=== PATIENT | female | born 2000 | race Asian ===

== ENCOUNTER 2022-05-17 09:54 | Outpatient (CLI) | payer OTHER, SELFPAY ==
[2022-05-17 13:43] LABS: Chloride* 108 mmol/L (96-114)
[2022-05-17 13:44] LABS: Albumin* 4.3 g/dL (3.3-5.0); Potassium* 3.9 mmol/L (3.6-5.1); Sodium* 141 mmol/L (135-149)
[2022-05-17 13:46] LABS: Carbon Dioxide* 25 mmol/L (20-32); Creatinine* 0.5 mg/dL (0.5-1.5); Estimated Glomerular Filt Rate 136 ml/min
[2022-05-17 13:47] LABS: Alanine Aminotransferase* 15 U/L (4-35); Alkaline Phosphatase* 51 U/L (40-150); Aspartate Amino Transferase* 22 U/L (12-35); Bilirubin Total* 0.3 mg/dL (0.1-1.5); Blood Urea Nitrogen* 6 mg/dL (5-24); Calcium* 9.3 mg/dL (8.4-10.6); Glucose* 76 mg/dL (60-115); Total Protein* 6.9 g/dL (6.0-8.3)
[2022-05-17 15:45] LABS: Iron* 53 ug/dL (37-170)
[2022-05-17 15:55] LABS: Percent Iron Saturation 18 % (20-50); Total Iron Binding Capacity 293 ug/dL (265-497)
[2022-05-17 16:22] LABS: Ferritin* 18.4 ng/mL (6.24-137.0)
== END 2022-05-17 09:55 | disposition home or self-care (01) ==
PROVIDERS: Visit Provider Family Medicine
DX: R55 Syncope and collapse (principal)
CPT/HCPCS: 80053; 82728; 83540; 83550; 84443

== ENCOUNTER 2022-07-09 10:52 | Emergency (ER) | payer OTHER, SELFPAY ==
[2022-07-09 10:59] VITALS: BP 129/91; PULSE 114; RESP 20; TEMP 36.8; O2SAT 98
--- NOTE | 2022-07-09 11:27 | ED_ITS ---
HPI - General Adult General Chief complaint: Ear/Nose/Throat Problem Stated complaint: nose bleed Time Seen by Provider: 07/09/22 10:56 History of Present Illness HPI narrative: Patient is a 22-year-old female who has had a left-sided nosebleed for about the last hour. She has had them in the past, has no history of bleeding problems or other issues other than history of anemia and vasovagal syncope. She thinks it might have stopped at this point. She has not been swallowing blood. She is not lightheaded or dizzy. No trauma or injury Related Data Home Medications Medication Instructions Recorded Confirmed albuterol sulfate 90 mcg/actuation 2 puff inhalation Q4-6H PRN 03/13/22 03/13/22 aerosol inhaler beclomethasone dipropionate 80 mcg inhalation 03/13/22 03/13/22 mcg/actuation aerosol inhaler beclomethasone dipropionate 80 1 inh inhalation BID 05/17/22 05/17/22 mcg/actuation HFA breath activated aerosol (Qvar RediHaler) Allergies Allergy/AdvReac Type Severity Reaction Status Date / Time No Known Drug Allergies Allergy Verified 05/17/22 09:21 Review of Systems Status of ROS: Reports: 6 or more systems reviewed and unremarkable except as noted in History and below PFSH PFSH Medical History Anemia Syncope Vasovagal syncope Social History Smoking Status: Never smoker Exam Narrative: Exam Narrative: Objective: Patient's vital signs unremarkable she is alert orient x3 HEENT left nasal septal mucosa is friable no obvious bleeding noted Right nares is clear Mouth clear Procedure: Silver nitrate was applied after informed consent to the left nasal septum x2, no further bleeding noted good cauterization noted of the mucosal lining. Const: Vital Signs, click to edit/add: Vital Signs - 24 hr 07/09/22 10:59 Temperature 98.2 F Pulse Rate [Pulse Oximeter] 114 H Respiratory Rate 20 Blood Pressure [Ri ght Upper Arm] 129/91 H Pulse Oximetry 98 Oxygen Delivery Me thod Room Air Course Vital Signs Vital signs: Initial Vital Signs Temperature 98.2 F 07/09/22 10:59 Temperature Source Temporal Artery Scan 07/09/22 10:59 Pulse Rate 114 H 07/09/22 10:59 Pulse Rhythm 07/09/22 10:59 Respiratory Rate 20 07/09/22 10:59 Blood Pressure 129/91 H 07/09/22 10:59 Blood Pressure Mean 103 07/09/22 10:59 Blood Pressure Position Sitting 07/09/22 10:59 Pulse Oximetry 98 07/09/22 10:59 Oxygen Delivery Method 07/09/22 10:59 Vital Signs Temperature 98.2 F 07/09/22 10:59 Pulse Rate 114 H 07/09/22 10:59 Respiratory Rate 20 07/09/22 10:59 Blood Pressure 129/91 H 07/09/22 10:59 Pulse Oximetry 98 07/09/22 10:59 Oxygen Delivery Method 07/09/22 10:59 Temperature 98.2 F 07/09/22 10:59 Pulse Rate 114 H 07/09/22 10:59 Respiratory Rate 20 07/09/22 10:59 Blood Pressure 129/91 H 07/09/22 10:59 Pulse Oximetry 98 07/09/22 10:59 Oxygen Delivery Method 07/09/22 10:59 Medical Decision Making MDM Narrative Medical decision making narrative: Left nares epistaxis, nasal septal mucosal friability, status post cauterization with silver nitrate x2. This point I would recommend observation, Vaseline to the external nose or bacitracin as needed daily, adequate hydration, recheck as needed. She is comfortable this plan. Discharge Plan Discharge Clinical Impression: Epistaxis Patient Disposition: Home, Self-Care Condition: Improved Additional Instructions: Light activity, avoid nasal trauma picking or blowing the nose. Bacitracin or Vaseline to each nares daily for the next week, return as needed Activity Level: Light activity Activity Detail: Light activity times 48 hours Discharge Diet: Regular Prescriptions: No Action Qvar RediHaler 80 mcg/actuation HFA aerosol breath activated 1 inh inhalation BID beclomethasone dipropionate 80 mcg/actuation aerosol inhalation albuterol sulfate 90 mcg/actuation HFA aerosol inhaler 2 puff inhalation Q4-6H PRN Follow Up/Referrals: Provider,Not a Local [Primary Care Provider] - Stand Alone Forms: [facility] Info Instructions
== END 2022-07-09 11:43 | disposition home or self-care (01) ==
PROVIDERS: Emergency Provider Family Medicine
DX: R04.0 Epistaxis (principal)
CPT/HCPCS: 30901; 99283; 99284